=== PATIENT | female | born 1995 | race Caucasian/White ===

== ENCOUNTER 2017-09-02 10:00 | Inpatient (IN) | payer BC ==
[2017-09-02 10:36] VITALS: BMI 40.3
[2017-09-02] MEDS ORDERED: MIDAZOLAM HCL 2 MG/2 ML SINGLE DOSE VIAL ONE (12:24)
[2017-09-02] MEDS ORDERED: ROCURONIUM BROMIDE 50 MG/5 ML VIAL ONE (12:24)
[2017-09-02] MEDS ORDERED: KETOROLAC TROMETHAMINE 30 MG/1 ML VIAL ONE (12:32)
[2017-09-02] MEDS ORDERED: DEXAMETHASONE SOD PHOSPHATE 4 MG/1 ML VIAL ONE (12:32)
[2017-09-02] MEDS ORDERED: ceFAZolin SODIUM 1 GM VIAL ONE (12:32)
[2017-09-02] MEDS ORDERED: BUPIVACAINE HCL/PF 0.5% (5MG/ML) 10 ML VIAL ONE (12:45)
--- NOTE | 2017-09-02 12:52 | HP ---
Admitting History and Physical - Admission Chief Complaint: Morbid Obesity History Source: Patient Limitations to Obtaining History: No Limitations - Past Medical History ...LMP: 08/05/17 - Smoking History Smoking history: Never smoked - Alcohol/Substance Use Hx Alcohol Use: No Home Medications - Allergies Allergies/Adverse Reactions: Allergies Allergy/AdvReac Type Severity Reaction Status Date / Time No Known Allergies Allergy Verified 09/02/17 10:31 - Home Medications Home Medications: Ambulatory Orders NK [No Known Home Medication] 09/02/17 Family Disease History - Family Disease History Family History: Unremarkable Review of Systems - Review of Systems Constitutional: denies: Chills, Fever HENT: reports: No Symptoms Neck: reports: No Symptoms Cardiovascular: denies: Chest Pain Respiratory: denies: Cough Gastrointestinal: denies: Abdominal Pain Neurological: denies: Change in LOC Pain Intensity: 0 Physical Examination Vital Signs: Vital Signs Temperature 98.2 F 09/02/17 10:42 Pulse Rate 73 09/02/17 10:42 Respiratory Rate 20 09/02/17 10:42 Blood Pressure 125/71 09/02/17 10:42 O2 Sat by Pulse Oximetry (%) 99 09/02/17 10:42 Constitutional: Yes: Calm HENT: Yes: WNL Neck: Yes: Supple Cardiovascular: Yes: Regular Rate and Rhythm Respiratory: Yes: CTA Bilaterally Gastrointestinal: Yes: Soft, Abdomen, Obese Neurological: Yes: Alert, Oriented Problem List - Problems (1) Morbid (severe) obesity due to excess calories Code(s): E66.01 - MORBID (SEVERE) OBESITY DUE TO EXCESS CALORIES Assessment/Plan 22 female with morbid obesity For Robotic possible open vertical sleeve gastrectomy
[2017-09-02] MEDS ORDERED: ceFAZolin SODIUM 1 GM VIAL IVPB ONE (13:26)
[2017-09-02] MEDS ORDERED: BUPIVACAINE HCL/PF 0.5% (5MG/ML) 10 ML VIAL IJ ONE ×2 (14:25→15:10)
[2017-09-02] MEDS ORDERED: HYDROmorphone HCL/PF 1 MG/ML VIAL (FOR PYXIS CHARGING ONLY) ONE ×2 (15:11→15:17)
[2017-09-02] MEDS ORDERED: PROMETHAZINE HCL 25 MG/1 ML VIAL IVPUSH PRN (15:22)
[2017-09-02] MEDS ORDERED: ONDANSETRON 4 MG/2 ML VIAL IVPUSH PRN (15:22)
[2017-09-02] MEDS ORDERED: oxyCODONE HCL 5 MG TABLET PO PRN (15:22)
--- NOTE | 2017-09-02 15:43 | OP ---
Operative Note - Note: Operative Date: 09/02/17 Pre-Operative Diagnosis: morbid obesity Operation: robotic assisted vertical gastric sleeve with endoscopy, liver biospy Surgeon: García Winchester Documentation Improvement Specialist: Diana Medrano Anesthesiologist/MANAGER CARGO: Chris Lew Anesthesia: General Estimated Blood Loss (mls): 30 Fluid Volume Replaced (mls): 1,200 Operative Report Dictated: Yes
--- NOTE | 2017-09-02 15:44 | SURG ---
Surgery Chili Powder Mixer Note Chili Powder Mixer: Diana Medrano PA-C Date of Service: 09/02/17 Diagnosis: morbid obesity Procedure: robotic assisted vertical sleeve gastrectomy, liver biopsy, endoscopy I was present for the entirety of the operative procedure. For further detail, please refer to operative report. Visit type - Case Type Case Type: Scheduled Admission - Emergency Emergency Visit: No - New patient This patient is new to me today: Yes Date on this admission: 09/02/17
[2017-09-02] MEDS ORDERED: ONDANSETRON 4 MG/2 ML VIAL IVPUSH SCH (15:45)
[2017-09-02] MEDS ORDERED: METOCLOPRAMIDE HCL INJECTION 10 MG/2 ML VIAL IVPUSH SCH (15:45)
[2017-09-02] MEDS ORDERED: HYDROmorphone HCL CARPU-JECT 1 MG/1 ML DISP.SYRIN IVPB PRN (15:45)
[2017-09-02] MEDS ORDERED: ACETAMINOPHEN 1000 MG/100 ML VIAL (NON FORMULARY) IVPB SCH (15:45)
[2017-09-02] MEDS ORDERED: SODIUM CHLORIDE 1,000 ML IV SCH ×2 (15:45→17:24)
[2017-09-02] MEDS: ACETAMINOPHEN 1000 MG/100 ML VIAL (NON FORMULARY) IVPB SCH ×2 (15:55→21:45)
--- NOTE | 2017-09-02 16:08 | OP ---
Operative Note - Note: Operative Date: 09/02/17 Pre-Operative Diagnosis: Morbid Obesity Operation: Robotic vertical sleeve gastrectomy, Robotic wedge liver biopsy, Upper endoscopy, Laparoscopic umbilical hernia repair Post-Operative Diagnosis: Other (Morbid obesity, hepatomegaly, umbilical hernia) Surgeon: García Winchester Trains Service Conductor: Diana Medrano Anesthesia: General Specimens Removed: Greater curvature of the stomach Estimated Blood Loss (mls): 30 Drains & Tubes with Location: 36 Fr Bougie Operative Report Dictated: Yes
[2017-09-02 16:09] LABS: MCH 28.4 pg (25.7-33.7); MCHC 33.8 g/dl (32.0-36.0); MEAN CELL VOLUME 83.9 fl (80-96); MEAN PLT VOLUME 8.4 fl (7.5-11.1); PLATELET COUNT 310 K/MM3 (134-434); RDW 13.3 % (11.6-15.6); WHITE BLOOD COUNT 19.9 K/mm3 (4.0-10.0)
[2017-09-02] MEDS: HYDROmorphone HCL CARPU-JECT 1 MG/1 ML DISP.SYRIN IVPB PRN ×3 (16:16→21:23)
[2017-09-02] MEDS ORDERED: HYDROmorphone HCL CARPU-JECT 2 MG/1 ML DISP.SYRIN ONE (16:17)
[2017-09-02 16:32] LABS: ALBUMIN 3.1 g/dl (3.4-5.0); ALK PHOS 71 U/L (45-117); ANION GAP 14 (8-16); BILIRUBIN,TOTAL 0.3 mg/dL (0.2-1.0); CALCIUM 8.2 mg/dL (8.5-10.1); CO2 23 mmol/L (21-32); CREATININE 0.8 mg/dL (0.55-1.02); GLUCOSE,RANDOM 143 mg/dL (74-106); SGOT/AST 83 U/L (15-37); SGPT/ALT 89 U/L (12-78); TOT PROT 6.7 g/dl (6.4-8.2)
[2017-09-02] MEDS ORDERED: METOCLOPRAMIDE HCL INJECTION 10 MG/2 ML VIAL ONE (17:08)
--- NOTE | 2017-09-02 19:03 | SPEC ---
DATE OF OPERATION: 09/02/2017 SURGEON: García Winchester M.D. WOOLEN TESTER: Lisette Santoro PREOPERATIVE DIAGNOSIS: Morbid obesity due to excess calories. POSTOPERATIVE DIAGNOSIS: 1. Morbid obesity due to excess calories. 2. Hepatomegaly. 3. Umbilical hernia. PROCEDURE: Robotic vertical sleeve gastrectomy. Robotic wedge liver biopsy. Upper endoscopy. Laparoscopic umbilical hernia repair. SPECIMEN: Greater curvature of the stomach and wedge liver biopsy to the left lobe of the liver. ESTIMATED BLOOD LOSS: 30 mL. DRAINS: None. ANESTHESIA: GET. REASON FOR PROCEDURE: This is a 22-year-old female presents to the office for weight loss options. After describing different options, she decided to proceed with robotic vertical sleeve gastrectomy. RISKS AND BENEFITS: After describing the different options for weight loss management, the patient decided to proceed with a laparoscopic, possible open vertical sleeve gastrectomy. The patient was seen by the respective subspecialties and cleared for surgery. The risks and benefits of the procedure were explained. These included bleeding, infection, hernia, NV, DVT, PE, injury to surrounding structures including the liver, colon, bowel, spleen, esophagus, vessel injury, nerve injury, weight regain, gastric leak, staple line leak, sleeve leak, obstruction, vitamin deficiency, hair loss and as some of the possible complications. The patient understood and signed informed consent. DESCRIPTION OF PROCEDURE: The patient was placed supine on the operating room table. The patient underwent general endotracheal intubation. A Jeong catheter was inserted. The arms were brought out at 90 degrees and secured. A footboard was placed and the legs were secured laterally with padding. The abdomen was prepped and draped in the usual sterile fashion. A timeout was performed. An incision was made in the left upper quadrant and a Veress needle inserted. Pneumoperitoneum was established. Subsequently, the Veress needle was removed and a 12-mm trocar was placed. The laparoscopic camera was then inserted and inspection of the abdominal cavity was performed. An incision was then made in the supraumbilical area and a 15-mm trocar was placed under direct visualization. A 5-mm trocar was then placed in the right upper quadrant and a 5-mm trocar was placed below the left subcostal margin. A stab wound was made in the subxiphoid area and a Katharina clamp inserted and removed to dilate the tract. A Nancy liver retractor was inserted. The post was secured at the bedside by the nursing staff. The patient was placed in steep reverse Trendelenburg position and the Nancy liver retractor was used to secure the liver towards the anterior abdominal wall. The pylorus was identified and 6 cm proximal to it, the lesser sac was entered using the LigaSure device. All lateral attachments to the greater curvature of the stomach, including the short gastric vessels, were ligated using the LigaSure device toward the gastrosplenic and gastrophrenic ligaments. Once this was done in its entirety, it was confirmed that all tubes within the nasal or oropharyngeal cavity, including a temperature probe, was removed by Anesthesia. The bougie was then inserted by Anesthesia. Transection of the stomach was then begun staying adjacent to the bougie but away from the angularis. Transection of the stomach was performed near the portion of the stomach where the lesser sac was entered. Two laparoscopic Endo-DUANE black daryn were used at this location. Laparoscopic Endo DUANE purple staple loads were then used for the remainder of the transection until the greater curvature of the stomach was fully transected. This was done staying close to the bougie. Care was taken to stay away from the angle of His cephalad. The staple line was then inspected. Hemostasis was identified. A leak test was then performed. It was clamped distally to the staple line. Irrigation solution was placed in the left upper quadrant and air was insufflated by Anesthesia into the sleeve. No leaks were identified. No obstruction was identified. This was done through the entirety of the staple line. In addition, in order to further assess for a leak, an upper endoscopy was performed. The bougie was removed. After the distal aspect of the stomach was clamped beyond the level of the staple line, the endoscope was inserted into the patient's mouth. The entirety of the esophagus, gastroesophageal junction, and stomach until the level beyond the staple line was fully inspected. The staple line was noted to be fully intact and no evidence of obstruction or leak was noted. The stomach was then suction decompressed and the endoscope removed.At this point, the irrigation solution was suctioned and again , hemostasis was noted. A wedge liver biopsy was then performed. The left lobe of the liver was identified and a portion of the edge was grasped. Using electrocautery, a wedge of the liver was excised. This was removed and sent off the field as specimen. Hemostasis at the site of the wedge liver biopsy was attained using electrocautery. The 15-mm supraumbilical trocar was then removed and the greater curvature specimen removed from the site using a sponge stick mcelroy. The specimen was inspected and a Veress needle inserted. The specimen insufflated adequately and no leak was identified. The staple line was noted to be intact. A Alonso-Kenny device was then used to temporarily close the fascia with a 0 Vicryl suture at the site. The 15-mm trocar was then reinserted and the 12-mm trocar in the left upper quadrant was removed. The fascia at this site was then closed using the Alonso-Kenny device with a 0 Vicryl suture. Again, hemostasis was noted. The Nancy liver retractor was then removed under direct visualization. Pneumoperitoneum was desufflated and the fascial sutures were secured. Hemostasis was noted at all incision sites and Marcaine was injected at all incision sites. All incision sites were closed using 4-0 Biosyn. Sterile dressings were applied. The patient tolerated the procedure well and was transferred to the recovery room in stable condition with the Jeong catheter intact. The patient was transferred to telemetry for further monitoring. In addition, please note at the beginning of the procedure an umbilical hernia was noted. This was used to place the initial trocar. At the end of the procedure, the umbilical hernia was closed using a Alonso Kenny device laparoscopically in a sojcyl-jv-cbxek fashion as well as reinforced with a lzwwww-mm-kxbho 0 Vicryl suture in an open fashion. Patient tolerated the procedure well. Lindsey [id number] PRINCE
[2017-09-02] MEDS ORDERED: PT OWN MED DRAWER 7, Y5N ONE (19:37)
[2017-09-02] MEDS: ONDANSETRON 4 MG/2 ML VIAL IVPUSH SCH (20:00)
[2017-09-02] MEDS ORDERED: ENOXAPARIN NA (PORCINE) 40 MG/0.4 ML DISP.SYRIN SQ SCH (22:00)
[2017-09-02] MEDS ORDERED: FAMOTIDINE 20 MG/50 ML IVPB 50 ML IVPB SCH (22:00)
[2017-09-02] MEDS: METOCLOPRAMIDE HCL INJECTION 10 MG/2 ML VIAL IVPUSH SCH (22:30)
[2017-09-03] MEDS: HYDROmorphone HCL CARPU-JECT 1 MG/1 ML DISP.SYRIN IVPB PRN ×2 (00:56→05:50)
[2017-09-03] MEDS: ACETAMINOPHEN 1000 MG/100 ML VIAL (NON FORMULARY) IVPB SCH ×3 (03:15→09:41)
[2017-09-03] MEDS: ONDANSETRON 4 MG/2 ML VIAL IVPUSH SCH ×7 (03:29→23:38)
[2017-09-03] MEDS: METOCLOPRAMIDE HCL INJECTION 10 MG/2 ML VIAL IVPUSH SCH ×4 (03:30→21:22)
[2017-09-03] MEDS: ENOXAPARIN NA (PORCINE) 40 MG/0.4 ML DISP.SYRIN SQ SCH ×4 (03:31→21:23)
[2017-09-03] MEDS: FAMOTIDINE 20 MG/50 ML IVPB 50 ML IVPB SCH ×3 (03:31→21:23)
[2017-09-03 06:50] LABS: MCH 27.7 pg (25.7-33.7); MCHC 33.1 g/dl (32.0-36.0); MEAN CELL VOLUME 83.8 fl (80-96); MEAN PLT VOLUME 8.9 fl (7.5-11.1); PLATELET COUNT 252 K/MM3 (134-434); RDW 13.2 % (11.6-15.6); WHITE BLOOD COUNT 13.2 K/mm3 (4.0-10.0)
[2017-09-03 07:01] LABS: ALBUMIN 2.8 g/dl (3.4-5.0); ANION GAP 11 (8-16); CALCIUM 7.9 mg/dL (8.5-10.1); CO2 24 mmol/L (21-32); GLUCOSE,RANDOM 99 mg/dL (74-106)
[2017-09-03 07:06] LABS: ALK PHOS 60 U/L (45-117); BILIRUBIN,TOTAL 0.4 mg/dL (0.2-1.0); CREATININE 0.5 mg/dL (0.55-1.02); SGOT/AST 55 U/L (15-37); SGPT/ALT 74 U/L (12-78)
--- NOTE | 2017-09-03 08:20 | PN ---
Progress Note (short form) - Note Progress Note: POD#1 Pt without complaints of CP/SOB. No nausea or emesis. OOB and ambulated in the hallway x1. Voiding on her own. Vital Signs Period Temp Pulse Resp BP Sys/Campbell Pulse Ox Last 24 Hr 97.8 F-99.1 F 73-102 14-20 111-143/52-93 92-100 GEN: Appears comfortable CV:RRR Lungs: CTA b/l anteriorly ABD: soft, non-distended, inc tenderness. Inc c/d/i with dermabond/bandaids. No ecchymosis LE: Jaimie/SCDs in place. No calf tenderness or swelling noted b/l. CBC, BMP 09/03/17 05:35 09/03/17 05:35 /P: 22 yo female s/p robotic assisted veritcal sleeve gastrectomy Going to radiology now for upper GI study, if negative will being POD#1 gastric diet oob/ambulate Continue lovenox SQ BID am labs today cbc/chem D/w Dr. Winchester <Diana Medrano - Last Filed: 09/03/17 08:14> - Note Progress Note: Agree POD 1 Pain controlled No nausea/vomiting Vital Signs Period Temp Pulse Resp BP Sys/Campbell Pulse Ox Last 24 Hr 97.8 F-99.1 F 75-102 14-18 111-143/52-93 92-100 Abd soft, dressings intact CBC, BMP 09/03/17 05:35 09/03/17 05:35 UGI- no leak/obstruction Clears OOB Discharge planning <García Winchester - Last Filed: 09/03/17 11:16> Problem List - Problems (1) Morbid (severe) obesity due to excess calories Code(s): E66.01 - MORBID (SEVERE) OBESITY DUE TO EXCESS CALORIES <García Winchester - Last Filed: 09/03/17 11:16>
[2017-09-03] MEDS ORDERED: SODIUM CHLORIDE 1,000 ML IV SCH (11:15)
--- NOTE | 2017-09-03 11:18 | DS ---
Physical Examination Vital Signs: Vital Signs Temperature 97.8 F 09/03/17 06:00 Pulse Rate 75 09/03/17 06:00 Respiratory Rate 18 09/03/17 06:00 Blood Pressure 124/52 09/03/17 06:00 O2 Sat by Pulse Oximetry (%) 99 09/02/17 22:00 Constitutional: Yes: Calm HENT: Yes: WNL Cardiovascular: Yes: Regular Rate and Rhythm Respiratory: Yes: Regular Gastrointestinal: Yes: Soft Wound/Incision: Yes: Dressing Dry and Intact Neurological: Yes: Alert, Oriented Labs: CBC, BMP 09/03/17 05:35 09/03/17 05:35 Discharge Summary Reason For Visit: MORBID (SEVERE) OBESITY DUE TO EXCESS CALORIES Current Active Problems Hepatomegaly (Acute) Morbid (severe) obesity due to excess calories (Acute) Umbilical hernia (Acute) Procedures: Principal: Robotic sleeve gastrectomy, wedge liver biopsy, EGD, umbilical hernia repair Condition: Stable - Instructions Diet, Activity, Other Instructions: [address] [place] [address] García Winchester M.D. [address] [place] [address], [address] [facility] [address] [facility] [place] [address] Robotic, Bariatric and General Surgery Postoperative Instructions for Bariatric Surgery Activity: Resume normal everyday activity as tolerated. You may walk and climb stairs without any limitation. We encourage you to walk as often as you can Do not lift anything more than 10 pounds for 8 weeks. At that time, you can return to full activity, including the gym, without limitation. Do not drive a motor vehicle while taking prescribes narcotic pain medication. Wound Care: If you have a bandage in place, leave it on for 3 days. At that time you may remove the outer bandage. If there are strips of tape on the skin after removing the outer bandage, leave them in place. They will fall off by themselves. Do not remove them. If there is clear glue on the skin after removing the outer bandage, leave it in place. Do not pick at it or peel it off. You may shower after taking the outer bandage off, 3 days after your surgery. If incisions become red, warm or open, please call the office. Diet: Continue a sugar-free, non-carbonated Clear liquid diet three times a day for the first week-Stage I diet. In addition, you should drink 8 ounces of water every hour. When drinking, sips should be slow and steady, not large and quick. After the first week, call the office to be advanced to the next dietary stage. Do not advance stages until instructed. Your diet will be advanced over the phone each week. Medications/Pain Management: You may resume previous medications unless told otherwise. The pills may be swallowed whole or broken if scored. You may take the prescribed narcotic pain medication as needed. If the narcotic medication is not needed for pain control, you may take Tylenol. Avoid all other pain medications including Advil, Ibuprofen, Motrin, Aspirin, Naprosyn, Aleve, Celebrex. You will receive Pepcid. Please take this twice a day as prescribed. Dizziness,Headaches/Gas Pain: Make sure you are getting enough fluids daily. Patients on diuretics or water pills may need medication adjusted. Some fluids such as broth or Gatorade may help. Gas pains are common in the first few weeks after surgery. At times they can be worse than surgical pain. Walking can help. You can also use Mylanta, Maalox, or Gas-X. Vomiting/Nausea: This may occur if you eat too fast, don't chew, or eat too much. Go back to fluids. If the vomiting or nausea persists, call the office. Constipation/Diarrhea: You may experience a change in bowel habits. Many things affect this, including a decrease in food intake, not enough fluid and taking pain medication. Some people experience diarrhea after the barium swallow in x-ray. If either persist, call the office. Follow up: Call the office at [phone] for an appointment 2 weeks after your surgical procedure. Disposition: HOME - Home Medications Comprehensive Discharge Medication List: Ambulatory Orders Famotidine [Pepcid] 20 mg PO BID #60 tablet 09/02/17 Oxycodone HCl/Acetaminophen [Percocet 5-325 mg Tablet] 1 - 2 tab PO Q6H #28 tab MDD 4 09/02/17
[2017-09-03] MEDS: oxyCODONE HCL 5 MG TABLET PO PRN ×2 (13:40→18:54)
[2017-09-03] MEDS: ACETAMINOPHEN 325 MG TABLET (FP) PO PRN ×2 (13:42→18:54)
[2017-09-04] MEDS: METOCLOPRAMIDE HCL INJECTION 10 MG/2 ML VIAL IVPUSH SCH (04:26)
[2017-09-04] MEDS: ONDANSETRON 4 MG/2 ML VIAL IVPUSH SCH ×2 (04:29→07:58)
[2017-09-04] MEDS: ACETAMINOPHEN 325 MG TABLET (FP) PO PRN (04:37)
[2017-09-04 08:04] VITALS: BP 133/70; PULSE 101; TEMP 98.3
--- NOTE | 2017-09-04 15:16 | PATH ---
Surgical Pathology Report Patient Name: DAI MOHAN [facility]. Rec. #: [id number] /Age/Gender: 1995 (Age: 22) / F Account: [id number] Location: 4 PEDS/ADOL Taken: 09/02/2017 Received: 09/03/2017 Reported: 09/04/2017 Physicians: García Winchester M.D. Specimen(s) Received A: GREATER CURVATURE OF STOMACH B: LIVER BIOPSY Clinical History Morbid obesity due to excessive calories Final Diagnosis A. STOMACH, SLEEVE GASTRECTOMY: PORTION OF STOMACH MILD CHRONIC GASTRITIS. IMMUNOSTAIN FOR H. PYLORI IS NEGATIVE. B. LIVER, WEDGE BIOPSY: PORTION OF LIVER WITH MINIMAL MACROVESICULAR STEATOSIS. NO INFLAMMATORY INFILTRATES ARE IDENTIFIED. IRON STAIN SHOWS NO INCREASED IRON DEPOSITION. TRICHROME STAIN SHOWS MILD PORTAL FIBROSIS. Electronically Signed Wayne Casanova M.D. Gross Description A. Received in formalin, labeled "greater curvature of stomach," is a 125 gram, 17.0 x 3.5 x 3.5 cm. portion of stomach with a stapled margin of resection. The serosa is zarate-gautam with minimal attached fat. The mucosa is zarate-pink with normal folds. No mucosal masses are identified. Rating Examiner sections are submitted in one cassette. B. Received in formalin labeled "liver biopsy," is a 3.0 x 1.8 x 0.9 cm zarate-brown, irregular portion of soft tissue, consistent with a liver biopsy. The specimen is trisected and entirely submitted in 3 cassettes. /09/03/2017 saudi09/03/2017
== END 2017-09-04 09:15 | disposition home or self-care (01) | DRG 621 ==
LOC: JSAMEDAYSX 10:00 → J4S 17:55
PROVIDERS: ADMIT Surgery; ATTEND Surgery
PROC: 0FB24ZX Excision of Left Lobe Liver, Percutaneous Endoscopic Approach, Diagnostic (ICD-10-PCS; 2017-09-02)
PROC: 0WQF4ZZ Repair Abdominal Wall, Percutaneous Endoscopic Approach (ICD-10-PCS; 2017-09-02)
PROC: 8E0W4CZ Robotic Assisted Procedure of Trunk Region, Percutaneous Endoscopic Approach (ICD-10-PCS; 2017-09-02)
PROC: 0DB64Z3 Excision of Stomach, Percutaneous Endoscopic Approach, Vertical (ICD-10-PCS; principal; 2017-09-02 12:00)
DX: E66.01 Morbid (severe) obesity due to excess calories (principal); Z68.41 Body mass index [BMI] 40.0-44.9, adult; R16.0 Hepatomegaly, not elsewhere classified; K42.9 Umbilical hernia without obstruction or gangrene
CPT/HCPCS: 36415; 74241-TC; 80053; 84703; 85027; 86850; 86900; 86901; 88305-TC; 94760